=== PATIENT | female | born 1975 | race Caucasian/White ===

== ENCOUNTER 2016-09-16 09:38 | Emergency (ER) | payer MEDICAID ==
[~2016-09-16] VITALS: Ht 167.6 cm; Wt 86.2 kg
[2016-09-16 09:56] VITALS: BP 155/91
[2016-09-16] MEDS ORDERED: SUMAtriptan SUCCINATE 6 MG/0.5 ML VL SC ONE (11:15)
[2016-09-16] MEDS ORDERED: ONDANSETRON ODT 4 MG TAB PO ONE (11:15)
== END 2016-09-16 11:38 | disposition home or self-care (01) ==
LOC: ER 09:48
DX: G43.909 Migraine, unspecified, not intractable, without status migrainosus (principal)
CPT/HCPCS: 96372; 99283; J3030; Q0162